=== PATIENT | male | born 1955 | race Caucasian/White ===

== ENCOUNTER → 2023-04-19 10:23 | Outpatient (REF) | payer MEDICARE, OTHER, SELFPAY | LOC: DHCBS HW 10:23 | PROVIDERS: ATTENDING PHYSICIAN Internal Medicine Cardiovascular Disease; FAMILY PHYSICIAN Family Medicine | DX: I48.0 Paroxysmal atrial fibrillation (principal); I35.1 Nonrheumatic aortic (valve) insufficiency | CPT/HCPCS: 93306 ==

== ENCOUNTER → 2024-04-09 08:10 | Outpatient (REF) | payer MEDICARE, OTHER, SELFPAY | LOC: RCS 08:10 | PROVIDERS: ATTENDING PHYSICIAN Internal Medicine Cardiovascular Disease; FAMILY PHYSICIAN Family Medicine | DX: R06.09 Other forms of dyspnea (principal) | CPT/HCPCS: 93017; 93350 ==

== ENCOUNTER → 2024-06-04 09:07 | Outpatient (REF) | payer MEDICARE, OTHER, SELFPAY ==
[2024-06-04 12:45] LABS: % Basophils 0.7 % (0-2); % Eosinophils 2.2 % (0-6); % Immature Granulocytes 0.2 % (0-0.5); % Lymphocytes 40.2 % (20.5-51.1); % Monocytes 9.6 % (1.7-9.3); % Neutrophils 47.1 % (42.2-75.2); Absolute Eosinophils 0.1 10^3/uL (0-0.7); Absolute Lymphocytes 1.8 10^3/uL (1.2-3.4); Absolute Monocytes 0.4 10^3/uL (0.1-0.6); Absolute Neutrophils 2.1 10^3/uL (1.4-6.5); Hematocrit 42.4 % (39.0-52.0); Hemoglobin 14.9 g/dL (13.0-18.0); Mean Corp Hgb Conc. 35.1 g/dL (33.0-37.0); Mean Corpuscular Hgb 31.3 pg (27.0-31.0); Mean Corpuscular Volume 89.1 fL (80.0-94.0); Mean Platelet Volume 10.9 fL (7.4-10.4); Nucleated Red Blood Cells % 0 % (-); Platelet Count 136 10^3/uL (130-400); Red Blood Cell Count 4.76 10^6/uL (4.70-6.10); Red Cell Dist. Width 12.6 % (11.5-14.5); White Blood Cell Count 4.5 10^3/uL (4.8-10.8)
[2024-06-04 13:51] LABS: PSA, Total - Screen 1.88 ng/ml (0.0-4.0)
[2024-06-04 14:07] LABS: ALT (SGPT) 34 U/L (0-50); AST (SGOT) 26 U/L (17-59); Albumin 4.8 g/dl (3.5-5.0); Alkaline Phosphatase 74 U/L (38-126); Blood Urea Nitrogen 17 mg/dl (9-20); Calcium 9.6 mg/dl (8.4-10.2); Carbon Dioxide 26 mmol/L (22-30); Chloride 102 mmol/L (98-107); Glucose 95 mg/dl (70-99); HDL Cholesterol 38 mg/dl; LDL Cholesterol, Calculated 75 mg/dl; Potassium 4.2 mmol/L (3.5-5.1); Sodium 138 mmol/L (135-145); Total Bilirubin 0.6 mg/dl (0.2-1.3); Total Cholesterol 137 mg/dl (50-199); Total Protein 7.1 g/dl (6.3-8.2); Triglyceride 122 mg/dl (10-149); Very Low Density Lipoprotein 24 mg/dl (0-30); eGFR > 60.00
[2024-06-04 15:15] LABS: TSH Reflex To Free T4 2.33 uIU/ml (0.47-4.68)
== END ==
LOC: HWLAB 09:07
PROVIDERS: ATTENDING PHYSICIAN Family Medicine; REFERRING PHYSICIAN Internal Medicine Cardiovascular Disease
DX: I10 Essential (primary) hypertension (principal); Z12.5 Encounter for screening for malignant neoplasm of prostate; I44.0 Atrioventricular block, first degree
CPT/HCPCS: 36415; 80053; 80061; 84443; 85025; G0103

== ENCOUNTER → 2024-06-07 10:00 | Outpatient (REF) | payer MEDICARE, OTHER, SELFPAY | LOC: RAD 10:00 | PROVIDERS: ATTENDING PHYSICIAN Internal Medicine Cardiovascular Disease; FAMILY PHYSICIAN Family Medicine | DX: I48.0 Paroxysmal atrial fibrillation (principal); I51.7 Cardiomegaly | CPT/HCPCS: 75574; Q9967 ==

== ENCOUNTER → 2024-07-23 12:03 | Outpatient (REF) | payer MEDICARE, OTHER, SELFPAY ==
[2024-07-23 16:52] LABS: % Basophils 0.7 % (0-2); % Eosinophils 2.3 % (0-6); % Immature Granulocytes 0.2 % (0-0.5); % Neutrophils 56.8 % (42.2-75.2); Absolute Eosinophils 0.1 10^3/uL (0-0.7); Absolute Lymphocytes 1.4 10^3/uL (1.2-3.4); Absolute Monocytes 0.4 10^3/uL (0.1-0.6); Absolute Neutrophils 2.5 10^3/uL (1.4-6.5); Hematocrit 40.9 % (39.0-52.0); Hemoglobin 14.7 g/dL (13.0-18.0); Mean Corp Hgb Conc. 35.9 g/dL (33.0-37.0); Mean Corpuscular Hgb 32.3 pg (27.0-31.0); Mean Corpuscular Volume 89.9 fL (80.0-94.0); Mean Platelet Volume 11.4 fL (7.4-10.4); Nucleated Red Blood Cells % 0 % (-); Platelet Count 140 10^3/uL (130-400); Red Blood Cell Count 4.55 10^6/uL (4.70-6.10); White Blood Cell Count 4.4 10^3/uL (4.8-10.8)
[2024-07-23 16:57] LABS: ALT (SGPT) 37 U/L (0-50); AST (SGOT) 24 U/L (17-59); Albumin 4.2 g/dl (3.5-5.0); Alkaline Phosphatase 69 U/L (38-126); Blood Urea Nitrogen 15 mg/dl (9-20); Calcium 9.4 mg/dl (8.4-10.2); Carbon Dioxide 30 mmol/L (22-30); Chloride 105 mmol/L (98-107); Glucose 101 mg/dl (70-99); Potassium 4.1 mmol/L (3.5-5.1); Sodium 142 mmol/L (135-145); Total Bilirubin 0.6 mg/dl (0.2-1.3); Total Protein 6.6 g/dl (6.3-8.2); eGFR > 60.00
== END ==
LOC: HWLAB 12:03
PROVIDERS: ATTENDING PHYSICIAN Internal Medicine Cardiovascular Disease; FAMILY PHYSICIAN Family Medicine
DX: I10 Essential (primary) hypertension (principal); I48.0 Paroxysmal atrial fibrillation; I44.4 Left anterior fascicular block; I51.7 Cardiomegaly; I35.1 Nonrheumatic aortic (valve) insufficiency
CPT/HCPCS: 36415; 80053; 85025

== ENCOUNTER 2024-07-26 07:33 | Day surgery (SDC) | payer MEDICARE, OTHER, SELFPAY ==
[2024-07-26] VITALS (12 sets, daily range): BP systolic 85–133; BP diastolic 61–93; BMI 29.8
[2024-07-26] MEDS: NSS 325 ML IV (08:25)
[2024-07-26] MEDS: LOW STRENGTH ASPIRIN 81 MG PO (08:30)
--- NOTE | 2024-07-26 14:14 | ITS.CL.CATH ---
[employer] - Catheterization
Cardiac Catheterization
Procedure Report:
RIGHT AND LEFT HEART STUDY
Date of Procedure: July 26, 2024
Referring: Dr. Sol Nieto
PROCEDURES:
1. Right heart catheterization
2. Left heart catheterization with coronary and single-plane left ventriculography
3. Hemodynamic assessment of proximal LAD stenosis with a Benton Omni wire. The iFR measured above the ischemic threshold at 0.91, 0.91, and 0.91
INDICATION: Exertional dyspnea. Exercise stress echocardiogram March 2024 without high risk findings.
NOTE: Anesthesia was required for procedure given severe claustrophobia and anxiety.
ACCESS: Right radial artery, 6 Slovak sheath in right brachial vein, 6 Slovak sheath
HEMODYNAMICS : mmHg
RA (m) : 15
RV (s/d) : 34/8
PA (s/d, m) : 131/15, 20
PCWP (m) : 22
AO (s/d, m) : 115/69, 89
LV (s/d) : 125/14
LVEDP : 22
Estimated Rodrigo Cardiac Output: 6.9 L / min and Cardiac Index: 2.9 L/ min / m-2
CORONARY FINDINGS :
Dominance: Right
LEFT MAIN: Normal
LEFT ANTERIOR DESCENDING: The LAD arises normally from the left main and runs in the anterior interventricular groove. There is a smooth 30-40% proximal LAD stenosis with only minor irregularities noted throughout the remainder of the vessel. The
distal LAD wraps completely around the apex supplying a portion of the inferior wall. The iFR in the LAD serially measured above the ischemic threshold at 0.91, 0.91, and 0.91
CIRCUMFLEX: The circumflex is a medium caliber vessel supplying a small OM1. OM 2 is large and bifurcates very proximally. The circumflex continues in the AV groove supplying a small posterolateral branch. Only minor irregularities are present.
RIGHT CORONARY ARTERY: The right coronary artery is a medium caliber dominant vessel with minor irregularities no focal obstructive stenosis.
HEMODYNAMIC ASSESSMENT OF THE LAD WITH A VOLCANO OMNI WIRE: The origin of the left main was cannulated with a 6 Fr JL 4 guide catheter. Intravenous heparin was administered and the ACT was followed during the procedure. Two hundred micrograms of
intracoronary nitroglycerin was given through the guide catheter. A Benton Omni wire was advanced to the guide catheter tip and normalized to guide catheter pressure. The Omni wire was then carefully manipulated across the stenosis. The initial
3 measurements of the iFR were felt to be unreliable. The Omni wire was retracted to the guide catheter and we normalized to the guide catheter pressure then readvanced across the proximal LAD stenosis. The IFR serially measured 0.91, 0.91, and
0.91 which were all above the ischemic threshold. The wire was retracted to the ostium of the LAD and the Pd/Pa measured 1.0 confirming no baseline drift.
VENTRICULOGRAPHY: Left ventriculography is performed in CASE projection. The digital single-plane left ventricular ejection fraction is visually estimated at 50%
SEDATION: By anesthesia
RADIATION SUMMARY: Fluoro Time (min): 8.2, Dose (mGy): 506, DAP (Gy.cm2) : 42.6
CONCLUSIONS
1. Nonobstructive coronary disease with mild proximal LAD stenosis and IFR measuring above the ischemic threshold
2. Mildly elevated left ventricular filling pressures
RECOMMENDATIONS
1. Continue current medical regimen. Will titrate atorvastatin higher for goal LDL cholesterol less than 70 mg/dL and preferably closer to 55 mg/dL
2. Trial of furosemide 20 mg p.o. 3 times weekly
3. Follow-up with Dr. Nieto
Copy to: Dr. Sol Nieto
== END 2024-07-26 18:09 | disposition home or self-care (01) ==
LOC: CATH 07:33
PROVIDERS: ATTENDING PHYSICIAN Internal Medicine Interventional Cardiology; FAMILY PHYSICIAN Family Medicine; OTHER PHYSICIAN Internal Medicine Cardiovascular Disease
DX: I25.10 Atherosclerotic heart disease of native coronary artery without angina pectoris (principal); R06.09 Other forms of dyspnea; Z79.01 Long term (current) use of anticoagulants; Z79.82 Long term (current) use of aspirin
CPT/HCPCS: 93799; 85347; 93460; C1769; C1894; Q9967

== ENCOUNTER → 2024-08-15 08:16 | Outpatient (REF) | payer MEDICARE, OTHER, SELFPAY ==
[2024-08-15 13:49] LABS: NT-proBNP 64.7 pg/ml
[2024-08-15 14:44] LABS: ALT (SGPT) 51 U/L (0-50); AST (SGOT) 34 U/L (17-59); Albumin 4.6 g/dl (3.5-5.0); Alkaline Phosphatase 71 U/L (38-126); Blood Urea Nitrogen 18 mg/dl (9-20); Calcium 9.5 mg/dl (8.4-10.2); Carbon Dioxide 27 mmol/L (22-30); Chloride 109 mmol/L (98-107); Glucose 103 mg/dl (70-99); Potassium 4.3 mmol/L (3.5-5.1); Sodium 142 mmol/L (135-145); Total Bilirubin 0.5 mg/dl (0.2-1.3); Total Protein 7.1 g/dl (6.3-8.2); eGFR > 60.00
== END ==
LOC: HWLAB 08:16
PROVIDERS: ATTENDING PHYSICIAN Internal Medicine Cardiovascular Disease; FAMILY PHYSICIAN Family Medicine
DX: I10 Essential (primary) hypertension (principal); I48.0 Paroxysmal atrial fibrillation; R06.09 Other forms of dyspnea
CPT/HCPCS: 36415; 80053; 83880